=== PATIENT | male | born 1980 | race Caucasian/White ===

== ENCOUNTER 2025-05-29 11:33 | Outpatient (CLI) | payer BC, SELFPAY ==
--- NOTE | ~2025-05-29 | XR_ITS ---
EXAMINATION: XR ankle RT min 3V DATE: 05/29/2025 12:00 INDICATION: Right ankle pain for 2 days. Golf injury TECHNIQUE: 4 images of the right ankle were obtained. COMPARISON: None. FINDINGS: Small spur along the distal tip of the lateral malleolus. Soft tissue swelling about the right ankle. Minimally displaced spiral oblique fracture of the distal right fibula which extend to the level of the tibiotalar joint. [ No radiopaque foreign body.] [ No sclerotic or destructive bone lesions.] Talar dome is unremarkable. IMPRESSION: 1. Minimally displaced spiral oblique fracture of the distal right fibula which extend to the level of the tibiotalar joint. 2. Soft tissue swelling about the right ankle. 3. Borderline widening of the medial clear space. Differential includes anatomic variant versus ligamentous injury. If symptoms persist or worsen consider a short-term follow-up study or MRI imaging for further assessment. Reviewed, dictated and finalized at location Q. IMPRESSION: 1. Minimally displaced spiral oblique fracture of the distal right fibula which extend to the level of the tibiotalar joint. 2. Soft tissue swelling about the right ankle. 3. Borderline widening of the medial clear space. Differential includes anatomi c variant versus ligamentous injury. If symptoms persist or worsen consider a short-term follow-up study or MRI imag ing for further assessment.
== END 2025-05-29 11:34 | disposition home or self-care (01) ==
LOC: GOSHIMG 11:43
PROVIDERS: PCP Family Medicine; Visit Provider Family Medicine
DX: S82.831D Other fracture of upper and lower end of right fibula, subsequent encounter for closed fracture with routine healing (principal); X58.XXXD Exposure to other specified factors, subsequent encounter
CPT/HCPCS: 73610

== ENCOUNTER 2025-06-02 08:52 | Outpatient (CLI) | payer BC, SELFPAY ==
--- NOTE | 2025-06-02 09:33 | ECG_ITS ---
Test Date: 2025-06-02 09:46:15 Measurements Intervals Emerson Rate: 72 P: 11 MN: 159 QRS: 23 QRSD: 93 T: -3 QT: 341 QTc: 374 Interpretive Statements SINUS RHYTHM WITH SINUS ARRHYTHMIA NONSPECIFIC T-WAVE ABNORMALITY ABNORMAL ECG No previous ECG available for comparison Electronically Signed On 06-02-2025 11:17:02 CDT by Theodore Jorge M.D.
--- OUTSIDE RECORDS SUMMARY | 2025-06-02 10:22 | XMS_ITS | Clinical Summary ---
Author Organization [facility] Address [address] [place] [id number] Care Team Providers Care Boat Loader Name Role Phone Efraín Dietz MD Unavailable Jonathan Tyler MD Unavailable [phone] Jonathan Tyler MD Unavailable [phone] Jonathan Tyler MD Primary Care Provider Allergies No known active allergies Medications fenofibrate (TRICOR) 145 MG tablet Take 1 tablet (145 mg total) by mouth daily. 07/31/20 22 Active COMPRESSION STOCKINGSIndicati ons:Varicose veins of bilateral lower extremities with other complications 20-30 [facility] Compression stockings, Thigh-high, open or closed toe Dx: I83.893 1 Container 5 02/01/20 23 Active Active Problems Problem Noted Date Diagnosed Date Varicose veins of bilateral lower extremities with other complications 01/31/2023 Chronic venous insufficiency 01/31/2023 Family History Medical History Relation Comments elevated trig Father ME Paternal Grandfather Stent Cardiac Paternal Grandfather Relation Status Comments Father Alive Maternal Grandfather Alive Maternal Grandmother Mother Alive Paternal Grandfather Paternal Grandmother Alive Social History Tobacco Use Types Packs/Day Years Used Date Smoking Tobacco: Former Cigarettes 1 - 1999 Passive Smoke Exposure: Never Smokeless Tobacco: Never Tobacco Cessation:Counseling Given: Not Answered Alcohol Use Standard Drinks/Week Comments Yes 0 (1 standard drink = 0.6 oz pur e alcohol) drinks on weekend Sex and Gender Information Value Date Recorded Sex Assigned at Not on file Legal Sex Male 6:12 PM LEGAL FINANCIAL SPECIALIST Gender Identity Not on file Sexual Orientation Not on file 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 Not on file Not o n file Last Filed Vital Signs Vital Sign Reading Time Taken Comments Blood Pressure 120/62 08/23/2023 3:41 PM LEGAL FINANCIAL SPECIALIST Pulse 80 08/23/2023 3:41 PM LEGAL FINANCIAL SPECIALIST Temperature 36.7 C (98.1 F) 07/10/2023 3:01 PM CDT Respiratory Rate 16 08/23/2023 3:41 PM LEGAL FINANCIAL SPECIALIST Oxygen Saturation 99% 08/23/2023 3:41 PM LEGAL FINANCIAL SPECIALIST Inhaled Oxygen Concentration - - Weight 112.1 kg (247 lb 3.2 oz) 08/23/2023 3:41 PM LEGAL FINANCIAL SPECIALIST Height 185.4 cm (6' 1) 08/23/2023 3:41 PM LEGAL FINANCIAL SPECIALIST Body Mass Index 32.61 08/23/2023 3:41 PM LEGAL FINANCIAL SPECIALIST Plan of Treatment Health Maintenance Due Date Last Done Comments Annual Physical 1985 Hepatitis C 01/23/2000 DTaP, Tdap and Td Vaccines ( 1 - Tdap) 2001 Hepatitis B Vaccines (1 of 3 - 19+ 3-dose series) 2001 HPV Vaccines (1 - 3-dose SCD M series) 2009 COVID-19 Vaccine (3 - 2024-2 6 season) 2025 01/10/2021, 12/19/2020 Meningococcal B Vaccine Aged Out No l onger eligible based on patient's age to complete this topic Meningococcal Vaccine Aged Out No wood ti eligible based on patient's age to complete this topic Pneumococcal Vaccine: Pediatrics (0 to 5 Years) and At-Risk Patients (6 to 49 Years) Aged Out No longer eligible b ased on patient's age to complete this topic RSV Immunizations Under 20 Months Aged Out No longer eligible b ased on patient's age to complete this topic Insurance [facility] Care Teams Boat Loader Relationship Specialty Start Date End Date Jonathan Tyler MD [address] [place] [phone] PCP - General FAMILY PRACTICE 01/31/23 Efraín Dietz MD Consulting Physician INTERNAL MEDICINE 01/11/23 Jonathan Tyler MD [address] [place] [phone] FAMILY PRACTICE 01/18/23 Jonathan Tyler MD [address] [place] [phone] FAMILY PRACTICE 01/31/23
== END 2025-06-02 08:53 | disposition home or self-care (01) ==
LOC: ANHSURGERY 09:28
PROVIDERS: PCP Family Medicine; Visit Provider Orthopaedic Surgery
DX: E78.5 Hyperlipidemia, unspecified (principal); R94.31 Abnormal electrocardiogram [ECG] [EKG]
CPT/HCPCS: 93005

== ENCOUNTER 2025-06-04 01:45 | Day surgery (SDC) | payer BC, SELFPAY ==
[2025-05-30 12:51] VITALS: BMI 33.7
--- NOTE | 2025-05-30 12:52 | PC.NURSE ---
Report to the Outpatient Waiting Room, entrance under the green pavilion located off [facility], at time _1030_ on date _[id number]_. Planned Procedure Time: _1230_.? Time changes happen often and if your time is changed the preop area will call you the afternoon before. - You and your visitor will be asked to self-screen and do not enter if you have any COVID symptoms. Please call surgeon if you need to reschedule. - A mask is optional within the hospital at this time. Patients may have clear liquids (water, carbonated beverages, clear teas, apple juice) until 3 hours prior to surgery with a maximum of 20 ounces. - No food from midnight until time of surgery and no smoking, or chewing tobacco (or any form of nicotine). No chewing gum, candy or mints. Take only the following medications with a SIP of water on the morning of surgery: __None___ DO NOT STOP ANY OF YOUR OTHER PRESCRIPTION MEDICATIONS PRIOR TO SURGERY EXCEPT THE FOLLOWING Hold all vitamins and supplements for 3 days per anesthesiologist. Medications to discontinue per physician Date to take last iekd___[phone] Please no make-up, nail latvian, hairspray, perfume, deodorant, or body powder the day of surgery.? No jewelry (including any body piercings) or valuables the day of surgery, leave them at home.? Please take a shower or bath the night before, or the morning of, surgery with an antibacterial soap.? Wear comfortable, loose fitting clothing.? - Jewelry must be removed prior to entering the operating room.? Rings and piercings that are not removed may be cut off. - The hospital will not accept responsibility for valuables.? - Please leave all valuables, including medications, at home the day of surgery. If you are going home after surgery, a licensed port cdl a driver must drive you home.? - NO public transportation without another adult if you receive anesthesia. - We recommend that an adult stay with you for 24 hours following discharge. - We also recommend that you do not drive, make important decision, drink alcoholic beverages, or take any drugs that were not prescribed by your health care provider for at least 24 hours after your discharge time. Follow any additional instructions given to you from your surgeon. Telephone instructions given to __Theodore___and asked if any additional questions and then verbalized understanding. Patient advised to call surgeon office or pre surgery nurse liaison [phone] if any additional questions.
[2025-06-04] VITALS (9 sets, daily range): BP systolic 128–151; BP diastolic 61–86; PULSE 61–81; RESP 12–20; TEMP 36.4–36.5; O2SAT 94–100
--- NOTE | ~2025-06-04 | XR_ITS ---
EXAMINATION: XR surgery orthopedic DATE: 06/04/2025 14:00 INDICATION: ORIF right ankle fracture TECHNIQUE: 3 fluoroscopic images of the right ankle were obtained during procedure performed by Dr. Maldonado. Radiologist was not present for the imaging or procedure. The amount of fluoroscopy time used during this procedure was 2.4 minutes. Total DAP was 1.378 Gycm^2. COMPARISON: Radiographs dated 05/29/2025 FINDINGS: Interval open reduction and internal fixation of an oblique fracture of the distal right fibula with interfragmentary screw and lateral plate and screws. There is also in likely tightrope type syndesmotic fixation with paired metallic buttons on either side of a pair of lucent tunnels extending across the metaphyseal regions of the distal tibia and fibula. Alignment appears near- anatomic with congruent ankle mortise. No other fractures identified. Joint space at the right ankle and visualized hind foot are normal. IMPRESSION: 1. Near-anatomic alignment post open reduction internal fixation of a distal right fibular fracture with associated distal tibiofibular syndesmotic fixation. See procedure note for further detail. Reviewed, dictated and finalized at location A. IMPRESSION: 1. Near-anatomic alignment post open reduction internal fixation of a distal ri ght fibular fracture with associated distal tibiofibular syndesmotic fixation. See procedure note for further detail.
--- OUTSIDE RECORDS SUMMARY | 2025-06-04 01:48 | XMS_ITS | Clinical Summary ---
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 Gender Identity Not on file Sexual Orientation Not on file 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 Not on file Not o n file Last Filed Vital Signs Vital Sign Reading Time Taken Comments Blood Pressure 120/62 08/23/2023 3:41 PM M1 ARMOR CREWMAN Pulse 80 08/23/2023 3:41 PM M1 ARMOR CREWMAN Temperature 36.7 C (98.1 F) 07/10/2023 3:01 PM CDT Respiratory Rate 16 08/23/2023 3:41 PM M1 ARMOR CREWMAN Oxygen Saturation 99% 08/23/2023 3:41 PM M1 ARMOR CREWMAN Inhaled Oxygen Concentration - - Weight 112.1 kg (247 lb 3.2 oz) 08/23/2023 3:41 PM M1 ARMOR CREW[employer] Height 185.4 cm (6' 1) 08/23/2023 3:41 PM M1 ARMOR CREWMAN Body Mass Index 32.61 08/23/2023 3:41 PM M1 ARMOR CREWMAN Plan of Treatment Health Maintenance Due Date [...] patient's age to complete this topic Insurance [facility] Care Teams Event Marketing Manager Relationship Specialty Start Date End Date Jonathan Tyler MD [address] [place] [phone] PCP - General FAMILY PRACTICE 01/31/23 Efraín Dietz MD Consulting Physician INTERNAL MEDICINE 01/11/23 Jonathan Tyler MD [address] [place] [phone] FAMILY PRACTICE 01/18/23 Jonathan Tyler MD [address] [place] [phone] FAMILY PRACTICE 01/31/23
[2025-06-04] MEDS: ACETAMINOPHEN 500 MG TABLET 1000 MG PO (10:42)
[2025-06-04] MEDS: LACTATED RINGERS 1,000 ML 30 ML IV CONT (10:50)
[2025-06-04] MEDS: KETOROLAC 15 MG/ML VIAL (*BKC) IV PUSH (10:52)
--- NOTE | 2025-06-04 11:00 | WPDANESEPPF ---
Anes - Initial Pre Proc Eval Procedure: Operation Date: 06/04/25 12:30 Proposed Procedures p Open Reduction Internal Fixation Right Ankle Fracture, Possible Syndesmosis - Chris Maldonado MD Date/Time: 06/04/25 11:00 Surgeon: Chris Maldonado MD Pre Op Diagnosis: right ankle fx Patient Data Age: 45 Gender: M Height: 1.85 m Weight: 115.9 kg Allergies Allergy/AdvReac Type Severity Reaction Status Date / Time No Known Allergies Allergy Verified 05/30/25 12:41 Home Medications ?Medication ?Instructions ?Recorded ?Confirmed ?Type fenofibrate nanocrystallized 145 145 mg PO DAILY 05/30/25 05/30/25 History mg tablet omega 9-uvj-iuk-fish oil 1,200 mg 1 cap PO DAILY 05/30/25 05/30/25 History (144 mg-216 mg) capsule (Fish Oil) ondansetron 8 mg disintegrating 8 mg PO Q6-8H PRN nausea and 06/03/25 Rx tablet vomiting #10 tabs oxycodone-acetaminophen 7.5 mg-325 1 tablet PO Q6H PRN pain #30 tabs 06/03/25 Rx mg tablet polyethylene glycol 3350 17 17 g PO DAILY PRN constipation 06/03/25 Rx gram/dose oral powder #119 grams sennosides 8.6 mg-docusate sodium 1 tab-cap PO BID #30 tabs 06/03/25 Rx 50 mg tablet Patient hx anesthesia problems: none Family hx anesthesia problems: none Results Review: All pre-operative results and documents have been reviewed as part of the pre-operative evaluation. [facility] Past Medical History Medical History (Updated 06/04/25 @ 11:03 by Austin Dickerson DO) Hyperlipidemia Acute disruption of syndesmosis of ankle joint Closed fracture of right distal fibula Social History Social History Smoking status: Never smoker Alcohol intake: current Living arrangements: with family Spiritual care concerns: No Anes - Eval Final PreProcedure Day of Procedure 06/04/25 11:00 Patient weight: obese Heart: regular rate and rhythm Lungs: clear to auscultation Airway: Mallampati scale class II Neurological: alert and oriented Last oral intake: >/= 8 hours ASA classification: II Emergent: no Anesthetic plan: proceed Anesthesia type and monitoring: general LMA and standard monitoring Results Review: All pre-operative results and documents have been reviewed as part of the pre-operative evaluation. Informed Consent: The patient's anesthetic plan and its attendant risks and benefits were discussed with the patient/family/POA. Questions were solicited and answers provided to the satisfaction of the patient/family/POA.
--- NOTE | 2025-06-04 11:41 | WPDHPUPDATE1 ---
History and Physical Update Update Date/Time: 06/04/25 11:41 History and Physical has been reviewed, including an updated exam of the patient. There are NO changes in the patient's condition. Risks, benefits, and alternatives have been discussed and questions answered. Patient agrees to proceed with procedure.
[2025-06-04] MEDS: ceFAZolin 2 GM in SODIUM CHLORIDE 0.9% IV 50 ML 100 ML IVPB (12:25)
[2025-06-04] MEDS: BUPIVACAINE/EPINEPHRINE 0.5% 50 ML VIAL 30 ML INFILTRATE (13:01)
--- NOTE | 2025-06-04 15:08 | W.PM.PROC2 ---
Procedure Note - Detailed Date of Procedure 06/04/25 Pre-op Diagnosis right ankle fx , syndesmosis disruption Post-op Diagnosis Same Procedure Performed open reduction internal fixation right ankle distal fibular fracture, open reduction internal fixation distal syndesmosis disruption Surgeon Chris Maldonado MD Blind Teacher 1st bilingual legal assistant Anesthesia General Indications a 45-year-old who fell twisting the right ankle sustained a distal fibular fracture with ankle mortise disruption and evidence of syndesmosis rupture. presents for operative treatment. Description of Procedure After informed consent, the operative extremity was marked in the preoperative holding area. Patient received intravenous antibiotics. Patient was then taken to the operating room and underwent general anesthesia by the anesthesia team. They were positioned supine on the operating room table. A time-out was performed confirming the patient, site of the surgery, operative plan. Lower extremity then prepped and draped in the usual sterile surgical fashion using ChloraPrep skin solution. Foot and ankle exsanguinated and a thigh tourniquet inflated to 250 mmHg. Longitudinal incision made over the lateral ankle distal fibula with a 15 blade knife. Hemostasis controlled with electrocautery. Full-thickness soft tissue flaps developed and the fascia was incised in line with the skin incision. Close proximity to the peroneal nerve under the fascia noted. Nerve was freed up proximally and protected during the procedure. Fracture identified and cleared with a dental pick, irrigation and rongeur. Fracture reduced and held with bone-holding clamp. Image intensification confirmed reduction of the fracture and the ankle mortise. Fixation achieved with a 3.5 millimeter fully-threaded cortical screw placed in lag technique across the fracture. Neutralization with a lateral plate with unicortical screws distal to fracture and bicortical screws proximal to the fracture. Good alignment and stability of the fracture noted. Image intensification used to confirm reduction of the fracture and placement of the hardware. Syndesmosis then addressed. dissection carried anterior to the fibula into the syndesmosis and the anterior tibia. Syndesmosis was reduced and held with a bone-holding clamp and verified with image intensification. Fixation achieved with Tight rope fixation. 2 of these were placed from lateral to medial. Drill hole placed and verified with image intensification. Tight rope then advanced medially and the medial button was secured against the tibia. The ankle is held in neutral as the tight rope was secured. 2Nd tight rope placed in similar fashion. Stress of the ankle performed with good stability of the ankle mortise in all directions. Wound thoroughly irrigated with saline solution. Fascia repaired with 00 Vicryl interrupted suture. Subcutaneous tissue repaired with 000 Monocryl interrupted suture and susy for the skin. Sterile dressings applied. Patient awoken from anesthesia, extubated and taken to the recovery room in stable condition. All sponge, needle and instrument counts correct at the end of the case. Palpable dorsalis pedis pulse noted prior to dressing. Implants Arthrex distal fibula plate, syndesmosis tight rope x2 Estimated Blood Loss 20 Tourniquet Time Total Tourniquet Time: 60 Drains No Packing No Pathology None sent Complications None Condition Stable Disposition PACU [facility] Billing Surgery - Charge Forward: Surgery Billing ([id number], [id number])
== END 2025-06-04 16:04 | disposition home or self-care (01) ==
PROVIDERS: PCP Family Medicine; Visit Provider Orthopaedic Surgery
PROC: (CPT 27829; principal; 2025-06-04 12:30)
DX: S82.831A Other fracture of upper and lower end of right fibula, initial encounter for closed fracture (principal); S93.431A Sprain of tibiofibular ligament of right ankle, initial encounter; W01.0XXA Fall on same level from slipping, tripping and stumbling without subsequent striking against object, initial encounter; Y93.53 Activity, golf
CPT/HCPCS: 27829; 27792; 99199; J0690; A9270; C1713; J1100; J1171; J1885; J2250; J2405; J2704; J3010; J7120